=== PATIENT | male | born 1960 | race Caucasian/White ===

== ENCOUNTER → 2019-02-26 | Emergency (ER) | payer OTHER ==
[~2019-02-26] VITALS: Ht 172.7 cm; Wt 90.7 kg
[~2019-02-26] MED LIST: CEPH500T PO; cefTRIAXone FOR IV USE 1,000 MG in WATER (STERILE) FOR INJECTION 10 ML IV ONE
--- NOTE | 2019-02-26 17:16 | Diagnostic Imaging Report ---
INDICATION: No history. TIME OF EXAM: 4:57 p.m. EXAMINATION: Three views of left side toes were obtained. FINDINGS: Metatarsals are intact. Phalanges appear to be intact. Midfoot is unremarkable. No fracture is seen. IMPRESSION: No acute bony abnormality is detected. Dictated by: Dictated on workstation # [id number]
[2019-02-26 17:17] LABS: BASOPHILS % (AUTO) 1 % (0-10); EOSINOPHILS # (AUTO) 0.4 10^3/uL (0.0-0.3); EOSINOPHILS % (AUTO) 6 % (0-10); HEMATOCRIT 36 % (40-54); HEMOGLOBIN 12.1 G/DL (13.3-17.7); LYMPHOCYTES # (AUTO) 1.4 X 10^3 (1.0-4.0); LYMPHOCYTES % (AUTO) 18 % (12-44); MEAN CORPUSCULAR HEMOGLOBIN 30 PG (25-34); MEAN CORPUSCULAR HGB CONC 34 G/DL (32-36); MEAN CORPUSCULAR VOLUME 90 FL (80-99); MEAN PLATELET VOLUME 11.9 FL (7.4-10.4); MONOCYTES # (AUTO) 0.8 X 10^3 (0.0-1.0); MONOCYTES % (AUTO) 10 % (0-12); NEUTROPHILS # (AUTO) 5.2 X 10^3 (1.8-7.8); NEUTROPHILS % (AUTO) 66 % (42-75); PLATELET COUNT 171 10^3/uL (130-400); RED CELL DISTRIBUTION WIDTH 14.5 % (10.0-14.5); WHITE BLOOD COUNT 7.8 10^3/uL (4.3-11.0)
[2019-02-26 17:30] LABS: ALBUMIN 3.3 GM/DL (3.2-4.5); BILIRUBIN,TOTAL 0.4 MG/DL (0.1-1.0); CALCIUM 8.7 MG/DL (8.5-10.1); CREATININE SERUM 3.89 MG/DL (0.60-1.30); POTASSIUM 3.9 MMOL/L (3.6-5.0); TOTAL PROTEIN 6.2 GM/DL (6.4-8.2)
--- NOTE | 2019-02-26 17:49 | ED Lower Extremity ---
General Chief Complaint: Lower Extremity Stated Complaint: LEFT TOE PAIN Nursing Triage Note: pt complaint of swelling and pain left third toe Nursing Sepsis Screen: No Definite Risk Source: patient Exam Limitations: no limitations History of Present Illness Date Seen by Provider: Feb 26, 2019 Time Seen by Provider: 16:30 Initial Comments 58 year old male who presents to the ED with complains of pain and swelling to the left third toe. Patient is a known diabetic with a chronic diabetic ulcer to the michaud aspect but noticed redness and swelling that started this morning to the dorsal surface. Denies fevers. HX of chronic kidney disease. Has appointment with PCP on Saturday of next week for this issue. Today is February 26. Onset: this morning Pain/Injury Location: left 3rd toe Allergies and Home Medications Allergies Uncoded Allergies: iv contrast (Allergy, Unknown, 02/26/19) Home Medications Cephalexin 500 Mg Tablet, 500 MG PO QID Prescribed by: MELIDA WOO on 02/26/19 4970 Patient Home Medication List Home Medication List Reviewed: Yes Review of Systems Constitutional: see HPI; No chills, No fever Musculoskeletal: see HPI, joint pain (left 3rd toe) All Other Systems Reviewed Negative Unless Noted: Yes Past Sgalrpm-Kiymif-Nggrco Hx Past Med/Social Hx: Reviewed Nursing Past Med/Soc Hx Patient Social History Recent Foreign Travel: No Contact w/Someone Who Travel: No Recent Infectious Disease Expo: No Family Medical History Reviewed Nursing Family Hx Physical Exam Vital Signs Vital Signs - First Documented 02/26/19 16:40 Temp 96.5 Pulse 71 Resp 18 B/P (MAP) 154/83 (106) Pulse Ox 100 O2 Delivery Room Air Capillary Refill : Less Than 3 Seconds Height, Weight, BMI Height: 5'8.00" Weight: 200lbs. oz. [id number]; BMI Method:Estimated General Appearance: WD/WN, no apparent distress Cardiovascular: normal peripheral pulses, regular rate, rhythm, no edema, no gallop, no JVD, no murmur Respiratory: chest non-tender, lungs clear, normal breath sounds, no respiratory distress, no accessory muscle use Feet: left foot infection, left foot pain, left foot swelling, left foot other (erythema to left 3rd toe dorsal surface) Neurologic/Tendon: normal sensation, normal motor functions, normal tendon functions, responds to pain, no evidence tendon injury Neurologic/Psychiatric: alert, normal mood/affect, oriented x 3 Skin: normal color, warm/dry Progress/Results/Core Measures Results/Orders Lab Results Laboratory Tests Test 02/26/19 16:40 Range/Units White Blood Count 7.8 4.3-11.0 10^3/uL Red Blood Count 4.03 L 4.35-5.85 10^6/uL Hemoglobin 12.1 L 13.3-17.7 G/DL Hematocrit 36 L 40-54 % Mean Corpuscular Volume 90 80-99 FL Mean Corpuscular Hemoglobin 30 25-34 PG Mean Corpuscular Hemoglobin Concent 34 32-36 G/DL Red Cell Distribution Width 14.5 10.0-14.5 % Platelet Count 171 130-400 10^3/uL Mean Platelet Volume 11.9 H 7.4-10.4 FL Neutrophils (%) (Auto) 66 42-75 % Lymphocytes (%) (Auto) 18 12-44 % Monocytes (%) (Auto) 10 0-12 % Eosinophils (%) (Auto) 6 0-10 % Basophils (%) (Auto) 1 0-10 % Neutrophils # (Auto) 5.2 1.8-7.8 X 10^3 Lymphocytes # (Auto) 1.4 1.0-4.0 X 10^3 Monocytes # (Auto) 0.8 0.0-1.0 X 10^3 Eosinophils # (Auto) 0.4 H 0.0-0.3 10^3/uL Basophils # (Auto) 0.0 0.0-0.1 10^3/uL Sodium Level 138 135-145 MMOL/L Potassium Level 3.9 3.6-5.0 MMOL/L Chloride Level 105 98-107 MMOL/L Carbon Dioxide Level 21 21-32 MMOL/L Anion Gap 12 5-14 MMOL/L Blood Urea Nitrogen 65 H 7-18 MG/DL Creatinine 3.89 H 0.60-1.30 MG/DL Estimat Glomerular Filtration Rate 16 BUN/Creatinine Ratio 17 Glucose Level 103 70-105 MG/DL Lactic Acid Level 0.91 0.50-2.00 MMOL/L Calcium Level 8.7 8.5-10.1 MG/DL Corrected Calcium 9.3 8.5-10.1 MG/DL Total Bilirubin 0.4 0.1-1.0 MG/DL Aspartate Amino Transf (AST/SGOT) 18 5-34 U/L Alanine Aminotransferase (ALT/SGPT) 15 0-55 U/L Alkaline Phosphatase 84 40-136 U/L C-Reactive Protein High Sensitivity 0.28 0.00-0.50 MG/DL Total Protein 6.2 L 6.4-8.2 GM/DL Albumin 3.3 3.2-4.5 GM/DL Micro Results Microbiology 02/26/19 Blood Culture - Preliminary, Resulted No growth 02/26/19 Blood Culture - Preliminary, Resulted No growth My Orders Orders - MELIDA WOO Toe(S) (02/26/19 16:37) Cbc With Automated Diff (02/26/19 16:37) Comprehensive Metabolic Panel (02/26/19 16:37) Blood Culture (02/26/19 16:37) Lactic Acid Analyzer (02/26/19 16:37) Hs C Reactive Protein (02/26/19 16:37) Ed Iv/Invasive Line Start (02/26/19 16:47) Ceftriaxone For Iv Use (Rocephin For I (02/26/19 17:45) Iv Push Cereal Supervisor Ed (02/26/19 ) Vital Signs/I&O 02/26/19 02/26/19 16:40 18:32 Temp 96.5 96.0 Pulse 71 70 Resp 18 18 B/P (MAP) 154/83 (106) 150/72 (98) Pulse Ox 100 100 O2 Delivery Room Air Room Air Blood Pressure Mean: 106 Departure Impression Primary Impression: Diabetic ulcer of toe Disposition: HOME, SELF-CARE Condition: Stable/Unchanged Departure-Patient Inst. Decision time for Depature: 17:47 Patient Instructions: Diabetic Foot Ulcer (DC) Add. Discharge Instructions: Take medications as directed. Keep your appointment as scheduled with your PCP on Saturday. Return back to the emergency room for worsening signs of infection such as increased redness, swelling, drainage, pain. All discharge instructions reviewed with patient and/or family. Voiced understanding. Scripts Cephalexin (Cephalexin) 500 Mg Tablet 500 MG PO QID for 7 Days, #28 TAB 0 Refills Prov: MELIDA WOO 02/26/19 MELIDA WOO Feb 26, 2019 17:49
[2019-02-26 18:32] VITALS: BP 150/72
== END | disposition home or self-care (01) ==
LOC: ER 16:18
DX: E11.621 Type 2 diabetes mellitus with foot ulcer (principal); Z91.041 Radiographic dye allergy status
CPT/HCPCS: 36415; 73660; 80053; 83605; 85025; 86141; 87040; 96374

== ENCOUNTER 2019-07-11 20:17 | Emergency (ER) | payer OTHER ==
[~2019-07-11] VITALS: Ht 182.9 cm; Wt 115.7 kg
[~2019-07-11 20:17] MED LIST changes: -cefTRIAXone FOR IV USE 1,000 MG in WATER (STERILE) FOR INJECTION 10 ML IV ONE
[2019-07-11] MEDS ORDERED: DOXYCYCLINE 100 MG (VIBRAMYCIN) TABLET PO ONE (20:45)
[2019-07-11] MEDS ORDERED: DOXY100T2 PO (20:46)
--- NOTE | 2019-07-11 20:46 | ED Upper Extremity ---
General Chief Complaint: Upper Extremity Stated Complaint: IV SITE IS INFLAMED Nursing Triage Note: PT AMBULATE TO TRIAGE WITH C/O POSSIBLE INFECTION FROM AN IV SITE FROM AN IN-HOSPITAL VISIT AT [facility]. PT STATES THAT SITE IS RED AND SWOLLEN. PT STATES THAT IT STARTED HURTING AFTER RECEIVING IV CONTRAST AT [place]. Nursing Sepsis Screen: No Definite Risk Source: patient Exam Limitations: no limitations History of Present Illness Date Seen by Provider: Jul 11, 2019 Time Seen by Provider: 20:30 Initial Comments This 59-year-old gentleman presents to the emergency room with complaints of pain, swelling, and erythema around a right antecubital fossa IV site. He had been admitted at [facility] in [place] earlier in the week. He was dismissed Saturday, July 08. He noticed discomfort initially after having what sounds like by his description a stress echo on Saturday. Symptoms have gradually worsened since then. He has tried gentle heat with a heating pad without much improvement. He denies systemic symptoms. His admission was for fluid overload. He does not recall any incidents with infiltration of the IV during his hospital stay. Allergies and Home Medications Allergies Uncoded Allergies: iv contrast (Allergy, Unknown, 02/26/19) Home Medications Cephalexin 500 Mg Tablet, 500 MG PO QID Prescribed by: MELIDA WOO on 02/26/191748 Doxycycline Hyclate 100 Mg Tablet, 100 MG PO BID Prescribed by: DONOVAN CENTENO on 07/11/192045 Patient Home Medication List Home Medication List Reviewed: Yes Review of Systems Constitutional: no symptoms reported EENTM: no symptoms reported Respiratory: no symptoms reported Cardiovascular: see HPI Gastrointestinal: no symptoms reported Genitourinary: no symptoms reported Musculoskeletal: no symptoms reported Skin: see HPI Psychiatric/Neurological: No Symptoms Reported Past Abqwwrh-Gmwquf-Dngqef Hx Past Med/Social Hx: Reviewed Nursing Past Med/Soc Hx Patient Social History Recent Foreign Travel: No Contact w/Someone Who Travel: No Recent Infectious Disease Expo: No Physical Abuse: No Sexual Abuse: No Mistreated: No Fear: No Past Medical History Surgeries: Yes Abdominal (gastric sleeve), Adenoidectomy, Cardiac (angiography), Tonsillectomy Respiratory: No Cardiac: Yes (congestive heart failure) High Cholesterol, Hypertension Genitourinary: Yes Renal Failure Gastrointestinal: Yes (gastric sleeve) Musculoskeletal: No Endocrine: Yes Diabetes, Non-Insulin dep HEENT: Yes Cataract Cancer: No Psychosocial: No Integumentary: Yes (history of cellulitis) Physical Exam Vital Signs Vital Signs - First Documented 07/11/19 07/11/19 20:23 20:51 Temp 36.8 Pulse 66 Resp 18 B/P (MAP) 146/78 (100) Pulse Ox 100 O2 Delivery Room Air Capillary Refill : Less Than 3 Seconds Height, Weight, BMI Height: 5'8.00" Weight: 200lbs. oz. [id number]; 34.00 BMI Method:Estimated General Appearance: WD/WN, no apparent distress HEENT: normal ENT inspection Cardiovascular: regular rate, rhythm, no edema, no murmur Respiratory: lungs clear, normal breath sounds, no respiratory distress Shoulder: normal inspection Elbow/Forearm: swelling (erythema, warmth, tenderness, slight swelling, and mild induration surrounding an IV site in the right antecubital fossa extending to the ventral surface of the proximal forearm and the ventral surface of the distal upper arm) Wrist: Yes normal inspection Hand: normal inspection Progress/Results/Core Measures Results/Orders My Orders Orders - DONOVAN PATRICK MD Doxycycline Hyclate Tablet (Vibramycin T (07/11/19 20:45) Medications Given in ED Current Medications Medications Dose Ordered Sig/Sanjay Route Start Time Stop Time Status Last Admin Dose Admin Doxycycline Hyclate 100 mg ONCE ONCE PO 07/11/19 20:45 07/11/19 20:46 DC 07/11/19 20:47 100 MG Vital Signs/I&O 07/11/19 07/11/19 20:23 20:51 Temp 36.8 Pulse 66 69 Resp 18 18 B/P (MAP) 146/78 (100) 131/71 Pulse Ox 100 O2 Delivery Room Air Room Air Blood Pressure Mean: 100 POS Progress Progress Note : Progress Note Findings likely represent superficial thrombophlebitis versus cellulitis. I'm concerned about cellulitis as this has worsened over the past 4 days rather than improved. A dose of doxycycline was administered. See discharge instructions for discussion with patient. Departure Impression Primary Impression: Cellulitis of right arm Disposition: 01 HOME, SELF-CARE Condition: Improved Departure-Patient Inst. Decision time for Depature: 20:43 Referrals: NO,LOCAL PHYSICIAN (PCP/Family) Primary Care Physician Patient Instructions: Cellulitis (Skin Infection), Adult (DC) Add. Discharge Instructions: The redness on your arm is likely cellulitis versus superficial thrombophlebitis (small blood clot in a superficial vein). Complete antibiotics as prescribed to treat potential cellulitis. Elevation to the level of the heart and compresses or heating pad on low setting in 20 minute intervals could help with thrombophlebitis. Return to care if you have worsening condition including spreading of redness after 2 doses of the antibiotic, development of fever over 100, increasing pain, puslike drainage, etc. All discharge instructions reviewed with patient and/or family. Voiced understanding. Scripts Doxycycline Hyclate (Doxycycline Hyclate) 100 Mg Tablet 100 MG PO BID, #14 TAB 0 Refills Prov: DONOVAN PATRICK MD 07/11/19 DONOVAN PATRICK MD Jul 11, 2019 20:46 POS
[2019-07-11 20:51] VITALS: BP 131/71
== END 2019-07-11 20:51 | disposition home or self-care (01) ==
LOC: EDUNIT# 20:17 → ER 20:18
DX: L03.113 Cellulitis of right upper limb (principal); I11.0 Hypertensive heart disease with heart failure; I50.9 Heart failure, unspecified; E78.00 Pure hypercholesterolemia, unspecified; E11.9 Type 2 diabetes mellitus without complications; Z91.041 Radiographic dye allergy status; Z90.89 Acquired absence of other organs
CPT/HCPCS: 99283

== ENCOUNTER 2022-07-07 17:51 | Observation (INO) | payer MEDICARE, OTHER ==
[~2022-07-07] VITALS: Ht 182 cm; Wt 112.1 kg
[~2022-07-07 17:51] MED LIST changes: +DOXY100T2 PO
[2022-07-07 18:29] LABS: BASOPHILS % (AUTO) 0 % (0-10); EOSINOPHILS % (AUTO) 0 % (0-10); HEMATOCRIT 40 % (40-54)
[2022-07-07 18:31] LABS: HEMOGLOBIN 13.1 g/dL (13.3-17.7); LYMPHOCYTES # (AUTO) 0.8 10^3/uL (1.0-4.0); LYMPHOCYTES % (AUTO) 9 % (12-44); MEAN CORPUSCULAR HEMOGLOBIN 30 pg (25-34); MEAN CORPUSCULAR HGB CONC 33 g/dL (32-36); MEAN CORPUSCULAR VOLUME 91 fL (80-99); MEAN PLATELET VOLUME 11.4 fL (9.0-12.2); MONOCYTES % (AUTO) 11 % (0-12); NEUTROPHILS # (AUTO) 7.2 10^3/uL (1.8-7.8); NEUTROPHILS % (AUTO) 79 % (42-75); PLATELET COUNT 121 10^3/uL (130-400)
--- NOTE | 2022-07-07 18:38 | ED General ---
General Chief Complaint: Fever-Adult/Adol Stated Complaint: LOWER RIGHT RIB PAIN/FEVER Nursing Triage Note: ARRIVED VIA AMB TO ROOM 09 WITH COMPLAINTS OF A FEVER, RIGHT LOWER RIB PAIN STARTING TODAY. PT TOOK TYLENOL AT 1500. PT HAD A KIDNEY TRANSPLANT IN OCTOBER. Source of Information: Patient Exam Limitations: No Limitations History of Present Illness Date Seen by Provider: Jul 07, 2022 Time Seen by Provider: 18:16 Initial Comments This 62-year-old gentleman presents to the emergency room with complaints of fever, shortness of breath, right lower pleuritic chest pain. He had vomiting on July 03 but otherwise denies abdominal symptoms. He has history of renal failure and renal transplant in October 2021. His transplant team is at [facility]. He receives nephrology services from Dr. Hernández in [place], [place]. His primary care provider is Dr. Leggett in [place]. He is not febrile at present. He reports temperatures at home up to 102.2. He last had Tylenol at 1500. Pain is beneath the right costal margin anteriorly and is worse with inspiration and coughing. He is not in any distress. Patient reports creatinine on Saturday was 1.7 with a GFR of 44. Allergies and Home Medications Allergies Coded Allergies: Iodinated Contrast Media (Verified Allergy, Unknown, 07/07/22) Uncoded Allergies: iv contrast (Allergy, Unknown, 02/26/19) Patient Home Medication List Home Medication List Reviewed: Yes Carvedilol (Carvedilol) 25 Mg Tablet, (Reported) Entered as Reported by: Kanwal Cassidy on 07/08/2258 Last Action: Last Taken Edited Cephalexin (Cephalexin) 500 Mg Tablet, 500 MG PO QID Prescribed by: MELIDA WOO on 02/26/191748 Doxycycline Hyclate (Doxycycline Hyclate) 100 Mg Tablet, 100 MG PO BID Prescribed by: DONOVAN CENTENO on 07/11/192045 Gabapentin (Gabapentin) 100 Mg Capsule, (Reported) Entered as Reported by: Kanwal Cassidy on 07/08/2258 Last Action: New Order Losartan Potassium (Losartan Potassium) 100 Mg Tablet, (Reported) Entered as Reported by: Kanwal Cassidy on 07/08/2258 Last Action: New Order Metformin HCl (Metformin HCl ER) 500 Mg Tab.er.24h, (Reported) Entered as Reported by: Kanwal Cassidy on 07/08/2258 Last Action: New Order Mycophenolate Sodium (Mycophenolic Acid) 180 Mg Tablet., (Reported) Entered as Reported by: Kanwal Cassidy on 07/08/2258 Last Action: New Order Pantoprazole Sodium (Pantoprazole Sodium) 40 Mg Tablet., (Reported) Entered as Reported by: Kanwal Cassidy on 07/08/2258 Last Action: New Order Pravastatin Sodium (Pravastatin Sodium) 20 Mg Tablet, (Reported) Entered as Reported by: Kanwal Cassidy on 07/08/2258 Last Action: New Order Tacrolimus (Envarsus Xr) 1 Mg Tab.er.24h, (Reported) Entered as Reported by: Kanwal Cassidy on 07/08/2258 Last Action: New Order Tacrolimus (Envarsus Xr) 4 Mg Tab.er.24h, (Reported) Entered as Reported by: Kanwal Cassidy on 07/08/2258 Last Action: New Order Review of Systems Review of Systems Constitutional: see HPI EENTM: no symptoms reported Respiratory: see HPI Cardiovascular: no symptoms reported Gastrointestinal: see HPI Genitourinary: see HPI Musculoskeletal: no symptoms reported Skin: no symptoms reported Psychiatric/Neurological: No Symptoms Reported Hematologic/Lymphatic: No Symptoms Reported Immunological/Allergic: no symptoms reported Past Iagkvbn-Frvfoq-Zagvbf Hx Patient Social History Tobacco Use?: No Use of E-Cig and/or Vaping dev: No Substance use?: No Alcohol Use?: No Immunizations Up To Date 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: TENISHA Seasonal Allergies Seasonal Allergies: Yes Past Medical History Surgeries: Yes Abdominal (Gastric sleeve), Adenoidectomy, Cardiac, Kidney Transplant, Tonsillectomy Respiratory: Yes Sleep Apnea Cardiac: Yes (congestive heart failure) Chronic Edema/Swelling (Lymphedema), High Cholesterol, Hypertension Neurological: Yes Neuropathy Genitourinary: Yes Renal Failure Gastrointestinal: Yes (gastric sleeve) Musculoskeletal: No Endocrine: Yes Diabetes, Non-Insulin dep HEENT: Yes Cataract Loss of Vision: Denies Hearing Impairment: Denies Cancer: No Psychosocial: No Integumentary: Yes (history of cellulitis) Blood Disorders: No Physical Exam-Suspected Sepsis Physical Exam Vital Signs Vital Signs - First Documented 07/07/22 18:02 Temp 37.3 Pulse 103 Resp 16 B/P (MAP) 164/72 (102) Pulse Ox 96 O2 Delivery Room Air Capillary Refill : Less Than 3 Seconds Blood Pressure Mean: 102 Height, Weight, BMI Height: 5'8.00" Weight: 200lbs. oz. [id number]; 32.00 BMI Method:Estimated General Appearance: No Apparent Distress, WD/WN, Other (Winces when he coughs or breathes deeply, otherwise not in distress) HEENT: PERRL/EOMI, Normal ENT Inspection Neck: Normal Inspection; No JVD Respiratory: No Accessory Muscle Use, No Respiratory Distress, Decreased Breath Sounds, Rhonci (Right lower chest) Cardiovascular: Regular Rate, Rhythm, No Edema, No Murmur Gastrointestinal: Non Tender, Soft, Abnormal Bowel Sounds (Decreased); No Distended Extremity: Normal Inspection, Non Tender, No Pedal Edema Neurologic/Psychiatric: Alert, Oriented x3, No Motor/Sensory Deficits, Normal Mood/Affect, front desk worker II-XII Norm as Tested Skin: normal color, warm/dry Focused Exam Lactate Level 07/07/22 18:40: Lactic Acid Level 0.75 Lactic Acid Level Progress/Results/Core Measures Suspected Sepsis SIRS Temperature: Pulse: 103 Respiratory Rate: 16 Laboratory Tests 07/07/22 18:20: White Blood Count 9.0 07/08/22 05:06: Blood Pressure 164 /72 Mean: 102 07/07/22 18:40: Lactic Acid Level 0.75 Laboratory Tests 07/07/22 18:20: Creatinine 1.73H, INR Comment 1.2, Platelet Count 121L, Total Bilirubin 0.7 07/08/22 05:06: Creatinine 1.59H Results/Orders Lab Results Laboratory Tests Test 07/07/22 18:20 07/07/22 18:30 07/07/22 18:40 07/07/22 18:45 Range/Units White Blood Count 9.0 4.3-11.0 10^3/uL Red Blood Count 4.39 4.30-5.52 10^6/uL Hemoglobin 13.1 L 13.3-17.7 g/dL Hematocrit 40 40-54 % Mean Corpuscular Volume 91 80-99 fL Mean Corpuscular Hemoglobin 30 25-34 pg Mean Corpuscular Hemoglobin Concent 33 32-36 g/dL Red Cell Distribution Width 13.5 10.0-14.5 % Platelet Count 121 L 130-400 10^3/uL Mean Platelet Volume 11.4 9.0-12.2 fL Immature Granulocyte % (Auto) 0 % Neutrophils (%) (Auto) 79 H 42-75 % Lymphocytes (%) (Auto) 9 L 12-44 % Monocytes (%) (Auto) 11 0-12 % Eosinophils (%) (Auto) 0 0-10 % Basophils (%) (Auto) 0 0-10 % Neutrophils # (Auto) 7.2 1.8-7.8 10^3/uL Lymphocytes # (Auto) 0.8 L 1.0-4.0 10^3/uL Monocytes # (Auto) 1.0 0.0-1.0 10^3/uL Eosinophils # (Auto) 0.0 0.0-0.3 10^3/uL Basophils # (Auto) 0.0 0.0-0.1 10^3/uL Immature Granulocyte # (Auto) 0.0 0.0-0.1 10^3/uL Percent Immature Platelet Fraction 4.8 0.0-7.6 % Prothrombin Time 15.5 H 12.2-14.7 SEC INR Comment 1.2 0.8-1.4 Activated Partial Thromboplast Time 30 24-35 SEC Sodium Level 135 135-145 MMOL/L Potassium Level 4.3 3.6-5.0 MMOL/L Chloride Level 106 98-107 MMOL/L Carbon Dioxide Level 18 L 21-32 MMOL/L Anion Gap 11 5-14 MMOL/L Blood Urea Nitrogen 25 H 7-18 MG/DL Creatinine 1.73 H 0.60-1.30 MG/DL Estimat Glomerular Filtration Rate 45 BUN/Creatinine Ratio 14 Glucose Level 125 H 70-105 MG/DL Calcium Level 9.1 8.5-10.1 MG/DL Corrected Calcium 9.5 8.5-10.1 MG/DL Total Bilirubin 0.7 0.1-1.0 MG/DL Aspartate Amino Transf (AST/SGOT) 11 5-34 U/L Alanine Aminotransferase (ALT/SGPT) 12 0-55 U/L Alkaline Phosphatase 82 40-136 U/L C-Reactive Protein High Sensitivity 8.16 H 0.00-0.50 MG/DL Total Protein 6.3 L 6.4-8.2 GM/DL Albumin 3.5 3.2-4.5 GM/DL Urine Color YELLOW Urine Clarity CLEAR Urine pH 6.0 5-9 Urine Specific [place] >=1.030 1.016-1.022 Urine Protein 2+ H NEGATIVE Urine Glucose (UA) NEGATIVE NEGATIVE Urine Ketones NEGATIVE NEGATIVE Urine Nitrite NEGATIVE NEGATIVE Urine Bilirubin NEGATIVE NEGATIVE Urine Urobilinogen 0.2 < = 1.0 MG/DL Urine Leukocyte Esterase TRACE H NEGATIVE Urine RBC (Auto) TRACE-I H NEGATIVE Urine RBC NONE /HPF Urine WBC 5-10 H /HPF Urine Squamous Epithelial Cells 0-2 /HPF Urine Crystals NONE /LPF Urine Bacteria FEW H /HPF Urine Casts PRESENT /LPF Urine Hyaline Casts RARE /LPF Urine Mucus NEGATIVE /LPF Urine Culture Indicated CULTURE PENDING Lactic Acid Level 0.75 0.50-2.00 MMOL/L Influenza Type A (RT-PCR) Not Detected Not Detecte Influenza Type B (RT-PCR) Not Detected Not Detecte SARS-CoV-2 RNA (RT-PCR) Not Detected Not Detecte Test 07/08/22 05:06 Range/Units Sodium Level 135 135-145 MMOL/L Potassium Level 4.9 3.6-5.0 MMOL/L Chloride Level 108 H 98-107 MMOL/L Carbon Dioxide Level 16 L 21-32 MMOL/L Anion Gap 11 5-14 MMOL/L Blood Urea Nitrogen 22 H 7-18 MG/DL Creatinine 1.59 H 0.60-1.30 MG/DL Estimat Glomerular Filtration Rate 49 BUN/Creatinine Ratio 14 Glucose Level 112 H 70-105 MG/DL Calcium Level 8.5 8.5-10.1 MG/DL My Orders Orders - DONOVAN PATRICK MD Cbc With Automated Diff (07/07/22 18:16) Comprehensive Metabolic Panel (07/07/22 18:16) Blood Culture (07/07/22 18:16) Sputum Culture (07/07/22 18:16) Urinalysis (07/07/22 18:16) Urine Culture (07/07/22 18:16) Protime With Inr (07/07/22 18:16) Partial Thromboplastin Time (07/07/22 18:16) Chest 1 View, Ap/Pa Only (07/07/22 18:16) Ed Iv/Invasive Line Start (07/07/22 18:16) Vital Signs Adult Sepsis Patie Q15M (07/07/22 18:16) O2 (07/07/22 18:16) Remove Rings In Anticipation O (07/07/22 18:16) Lactic Acid Analyzer (07/07/22 18:16) Hs C Reactive Protein (07/07/22 18:16) Covid 19 Inhouse Test (07/07/22 18:16) Influenza A And B By Pcr (07/07/22 18:16) Ns Iv 1000 Ml (Sodium Chloride 0.9%) (07/07/22 18:45) Ct Chest/Abdomen/Pelvis Wo (07/07/22 19:39) Ceftriaxone 1 Gm Pre-Mix (Rocephin 1 Gm (07/07/22 19:40) Code/Resuscitation (07/07/22 21:07) Doxycycline Injection (Vibramycin Inject (07/07/22 21:15) Ed Admission (Communication) (07/07/22 21:07) Vital Signs/I&O 07/07/22 07/07/22 07/07/22 07/07/22 18:02 21:22 21:30 21:30 Temp 37.3 37.3 37.2 Pulse 103 105 108 Resp 16 16 18 B/P (MAP) 164/72 (102) 161/84 162/86 (111) Pulse Ox 96 92 93 94 O2 Delivery Room Air Room Air Room Air Room Air 07/07/22 07/08/22 23:34 03:55 Temp 37.2 37.3 Pulse 93 96 Resp 16 16 B/P (MAP) 139/70 (93) 155/74 (101) Pulse Ox 93 93 O2 Delivery NIV CPAP NIV CPAP 07/08/22 00:00 Intake Total 1050 ml Balance 1050 ml Capillary Refill : Less Than 3 Seconds Blood Pressure Mean: 102 Progress Note : Time: 20:57 Progress Note Patient was found to have a small amount of WBC and bacteria in his urine. However, this does not explain his syndrome at present. CT of the chest, abdomen and pelvis was ordered to clarify the etiology of his pain and fever. Right lower lobe pneumonia was clearly identified on the CT. He is receiving Rocephin. We will add doxycycline. Case was reviewed with Dr. Max who accepts admission. CODE STATUS was discussed, and patient requests full code. Diagnostic Imaging Diagonstic Imaging: Xray Plain Films/CT/US/NM/MRI: chest Comments Chest x-ray viewed by me and report reviewed. See report below: NAME: MARYANN NIEVES [facility] REC#: [id number] PT STATUS: REG ER : 1960 PHYSICIAN: DONOVAN PATRICK MD ADMIT DATE: 07/07/22/ER Draft Date of Exam:07/07/22 CHEST 1 VIEW, AP/PA ONLY INDICATION: Fever, right lower chest pain. FINDINGS: The heart size upper limits but no overt failure pattern or significant vascular congestion. No focal consolidation. No free air beneath the diaphragms. No acute chest wall abnormality evident. IMPRESSION: No acute appearing abnormality. Dictated on workstation # [id number] Dict: 07/07/221918 Trans: 07/07/221921 [facility] [id number] Interpreted by: ANNIE FUENTES Diagonstic Imaging: CT Plain Films/CT/US/NM/MRI: chest, abdomen, pelvis Comments CT chest, abdomen and pelvis viewed by me and report reviewed. See report below: NAME: MARYANN NIEVES [facility] REC#: [id number] PT STATUS: REG ER : 1960 PHYSICIAN: DONOVAN PATRICK MD ADMIT DATE: 07/07/22/ER Draft Date of Exam:07/07/22 CT CHEST/ABDOMEN/PELVIS WO PROCEDURE: CT chest, abdomen, and pelvis without contrast. TECHNIQUE: Multiple contiguous axial images were obtained through the chest, abdomen, and pelvis without the use of intravenous contrast. Auto Exposure Controls were utilized during the CT exam to meet ALARA standards for radiation dose reduction. INDICATION: Fever, right lower quadrant pain, renal transplant. FINDINGS: CT CHEST: Focal airspace consolidation and bronchograms in the right lower lobe anterolaterally and inferiorly is consistent with pneumonia. The left lung and right upper lobe as well as middle lobe clear. No abscess or empyema. There is a minute right pleural effusion at the posterior sulcus, nonloculated. There is no adenopathy. The aorta is nonaneurysmal. No acute chest wall pathology. CT ABDOMEN PELVIS: Liver, gallbladder, bile ducts, spleen, adrenals and pancreas unremarkable. The kidneys show some cortical thinning and atrophy but no obstruction. There is a right iliac fossa renal transplant with no peritransplant fluid collection or transplant hydronephrosis. No radiopaque urinary calculi. The abdominal aorta is nonaneurysmal. There is no ileus or bowel obstruction. There is no ascites, abscess, hematoma or acute fluid collection. The urinary bladder is fluid-containing and appears unremarkable. IMPRESSION: 1. Right lower lobe pneumonia, chest otherwise unremarkable. 2. Bilateral [place] renal atrophy without their obstruction. Right iliac fossa transplant without adjacent fluid collection. No acute appearing abdominopelvic abnormality. Dictated on workstation # [id number] Dict: 07/07/222022 Trans: 07/07/222047 [facility] [id number] Interpreted by: ANNIE FUENTES Departure Communication (Admissions) Time/Spoke to Admitting Phy: 21:00 Dr. Max Impression Primary Impression: Right lower lobe pneumonia Qualified Codes: J18.9 - Pneumonia, unspecified organism Additional Impressions: History of renal transplant Chronic kidney disease Qualified Codes: N18.9 - Chronic kidney disease, unspecified Disposition: ADMITTED INPATIENT Condition: Stable Admissions Decision to Admit Reason: Admit from ER (General) Decision to Admit/Date: Jul 07, 2022 Time/Decision to Admit Time: 21:00 Departure-Patient Inst. Referrals: KLAUDIA LEGGETT DO (PCP/Family) Primary Care Physician DONOVAN PATRICK MD Jul 07, 2022 18:38
[2022-07-07 18:42] LABS: ALBUMIN 3.5 GM/DL (3.2-4.5); POTASSIUM 4.3 MMOL/L (3.6-5.0)
[2022-07-07 18:43] LABS: CALCIUM 9.1 MG/DL (8.5-10.1); INR 1.2 (0.8-1.4); PROTHROMBIN TIME PATIENT 15.5 SEC (12.2-14.7)
[2022-07-07 18:45] LABS: TOTAL PROTEIN 6.3 GM/DL (6.4-8.2)
[2022-07-07] MEDS ORDERED: NS IV 1000 ML 1,000 ML IV SCH (18:45)
[2022-07-07 18:46] LABS: BILIRUBIN,TOTAL 0.7 MG/DL (0.1-1.0)
[2022-07-07 18:48] LABS: CREATININE SERUM 1.73 MG/DL (0.60-1.30)
[2022-07-07 19:00] LABS: BILIRUBIN,URINE NEGATIVE (NEGATIVE); CLARITY,URINE CLEAR; COLOR,URINE YELLOW; GLUCOSE, URINE (UA) NEGATIVE (NEGATIVE); KETONES,URINE NEGATIVE (NEGATIVE); LEUKOCYTE ESTERASE ,URINE TRACE (NEGATIVE); NITRITE,URINE NEGATIVE (NEGATIVE); PROTEIN,URINE 2+ (NEGATIVE)
[2022-07-07 19:22] LABS: BACTERIA,URINE FEW /HPF; HYALINE CASTS, URINE RARE /LPF; SQUAMOUS EPITHELIAL CELL,UR 0-2 /HPF
--- NOTE | 2022-07-07 19:22 | Diagnostic Imaging Report ---
INDICATION: Fever, right lower chest pain. FINDINGS: The heart size upper limits but no overt failure pattern or significant vascular congestion. No focal consolidation. No free air beneath the diaphragms. No acute chest wall abnormality evident. IMPRESSION: No acute appearing abnormality. Dictated by: Dictated on workstation # [id number]
[2022-07-07] MEDS ORDERED: cefTRIAXone 1 GM PRE-MIX 50 ML IV STA (19:40)
--- NOTE | 2022-07-07 20:48 | Diagnostic Imaging Report ---
PROCEDURE: CT chest, abdomen, and pelvis without contrast. TECHNIQUE: Multiple contiguous axial images were obtained through the chest, abdomen, and pelvis without the use of intravenous contrast. Auto Exposure Controls were utilized during the CT exam to meet ALARA standards for radiation dose reduction. INDICATION: Fever, right lower quadrant pain, renal transplant. FINDINGS: CT CHEST: Focal airspace consolidation and bronchograms in the right lower lobe anterolaterally and inferiorly is consistent with pneumonia. The left lung and right upper lobe as well as middle lobe clear. No abscess or empyema. There is a minute right pleural effusion at the posterior sulcus, nonloculated. There is no adenopathy. The aorta is nonaneurysmal. No acute chest wall pathology. CT ABDOMEN PELVIS: Liver, gallbladder, bile ducts, spleen, adrenals and pancreas unremarkable. The kidneys show some cortical thinning and atrophy but no obstruction. There is a right iliac fossa renal transplant with no peritransplant fluid collection or transplant hydronephrosis. No radiopaque urinary calculi. The abdominal aorta is nonaneurysmal. There is no ileus or bowel obstruction. There is no ascites, abscess, hematoma or acute fluid collection. The urinary bladder is fluid-containing and appears unremarkable. IMPRESSION: 1. Right lower lobe pneumonia, chest otherwise unremarkable. 2. Bilateral [place] renal atrophy without their obstruction. Right iliac fossa transplant without adjacent fluid collection. No acute appearing abdominopelvic abnormality. Dictated by: Dictated on workstation # [id number]
[2022-07-07] MEDS ORDERED: DOXYCYCLINE INJECTION 100 MG in NS (IVPB) 100 ML IV ONE (21:15)
[2022-07-07 21:30] VITALS: BP 162/86
[2022-07-07] MEDS ORDERED: diphenhydrAMINE 50 MG/ML INJ (BENADRYL) IVP PRN (21:30)
[2022-07-07] MEDS ORDERED: NON-FORMULARY MEDICATION 1 EA EA PO SCH ×2 (21:30)
[2022-07-07] MEDS ORDERED: MELATONIN 3 MG TABLET PO PRN (21:30)
[2022-07-07] MEDS ORDERED: BISACODYL 10 MG SUPP (DULCOLAX) PR PRN (21:30)
[2022-07-07] MEDS ORDERED: LACTULOSE SYRUP 10GM/15ML (ENULOSE) 30ML UDC PO PRN (21:30)
[2022-07-07] MEDS ORDERED: CALCIUM CARBONATE 500 MG (TUMS) TAB.CHEW PO PRN (21:30)
[2022-07-07] MEDS ORDERED: ONDANSETRON 4 MG (ZOFRAN) ORAL DISSOLVE TAB PO PRN (21:30)
[2022-07-07] MEDS ORDERED: MILK OF MAGNESIA 400 MG/5 ML 30 ML UDC PO PRN (21:30)
[2022-07-07] MEDS ORDERED: ACETAMINOPHEN 325 MG TABLET PO PRN (21:30)
[2022-07-07] MEDS ORDERED: polyethylene glycoL POWDER 17 GM (MIRALAX) PACK PO PRN (21:30)
[2022-07-07] MEDS ORDERED: ONDANSETRON 4 MG/2 ML (SDV) Z0FRAN IV PRN (21:30)
[2022-07-07] MEDS ORDERED: hydrALAZINE (APESOLINE) 20 MG/ML VIAL IV PRN (21:30)
[2022-07-07] MEDS ORDERED: diphenhydrAMINE 25 MG TAB (BENADRYL) PO PRN (21:30)
[2022-07-07] MEDS ORDERED: ANTACID SUSP 30 ML UDC (MYLANTA) PO PRN (21:30)
[2022-07-07] MEDS: LACTATED RINGERS 1,000 ML IV SCH (22:05)
[2022-07-07 23:34] VITALS: BP 139/70
[2022-07-08] MEDS ORDERED: PRAV20TA3 (00:59)
[2022-07-08] MEDS ORDERED: CARV25TA (00:59)
[2022-07-08] MEDS ORDERED: MYCO180T3 (00:59)
[2022-07-08] MEDS ORDERED: PANT40TA52 (00:59)
[2022-07-08] MEDS ORDERED: GABA-486 (00:59)
[2022-07-08] MEDS ORDERED: TACR4TAB (00:59)
[2022-07-08] MEDS ORDERED: METF-865 (00:59)
[2022-07-08] MEDS ORDERED: TACR1TAB (00:59)
[2022-07-08] MEDS ORDERED: LOSA100T57 (00:59)
[2022-07-08 03:55] VITALS: BP 155/74
[2022-07-08 05:44] LABS: CALCIUM 8.5 MG/DL (8.5-10.1); CREATININE SERUM 1.59 MG/DL (0.60-1.30); POTASSIUM 4.9 MMOL/L (3.6-5.0)
[2022-07-08 06:17] LABS: BASOPHILS % (AUTO) 0 % (0-10); EOSINOPHILS % (AUTO) 0 % (0-10); HEMATOCRIT 31 % (40-54); HEMOGLOBIN 9.8 g/dL (13.3-17.7); LYMPHOCYTES # (AUTO) 0.6 10^3/uL (1.0-4.0); LYMPHOCYTES % (AUTO) 9 % (12-44); MEAN CORPUSCULAR HEMOGLOBIN 30 pg (25-34); MEAN CORPUSCULAR HGB CONC 31 g/dL (32-36); MEAN CORPUSCULAR VOLUME 95 fL (80-99); MEAN PLATELET VOLUME 11.4 fL (9.0-12.2); MONOCYTES # (AUTO) 0.9 10^3/uL (0.0-1.0); MONOCYTES % (AUTO) 12 % (0-12); NEUTROPHILS # (AUTO) 5.6 10^3/uL (1.8-7.8); NEUTROPHILS % (AUTO) 79 % (42-75); WHITE BLOOD COUNT 7.2 10^3/uL (4.3-11.0)
[2022-07-08 06:31] LABS: PLATELET COUNT 82 10^3/uL (130-400)
[2022-07-08 06:32] LABS: SMEAR SCAN COMMENT 0 CLUMPS OBSERVED
[2022-07-08] MEDS ORDERED: DOXYCYCLINE 100 MG (VIBRAMYCIN) TABLET PO SCH (07:00)
[2022-07-08 07:50] VITALS: BP 154/71
[2022-07-08] MEDS: LACTATED RINGERS 1,000 ML IV SCH (08:25)
[2022-07-08] MEDS ORDERED: AUGMENTIN 875 MG TAB (AMOXICILLIN/CLAVULANATE) PO SCH (08:45)
[2022-07-08] MEDS ORDERED: SENNOSIDES 8.6 MG (SENOKOT) TAB PO SCH (09:00)
[2022-07-08] MEDS ORDERED: DOCUSATE SODIUM 100 MG (COLACE) CAP PO SCH (09:00)
[2022-07-08] MEDS ORDERED: ENOXAPARIN 40 MG/0.4 ML (LOVENOX) SYR SC SCH (09:00)
[2022-07-08] MEDS ORDERED: DOXY100T2 PO (11:10)
[2022-07-08] MEDS ORDERED: AMOX1TAB12 PO (11:10)
[2022-07-08 11:17] VITALS: BP 154/71
[2022-07-08] MEDS ORDERED: cefTRIAXone 2,000 MG in NS (IVPB) 50 ML IV SCH (21:00)
== END 2022-07-08 11:09 | disposition home or self-care (01) ==
LOC: EDUNIT# 17:51 → ER 17:54 → 4TH 21:09 → UNDOADMOB 21:09 → 4TH 21:30 → UNDODISOB 07-08 11:09
PROVIDERS: ADMIT Internal Medicine; ATTEND Internal Medicine
DX: J18.9 Pneumonia, unspecified organism (principal); Z94.0 Kidney transplant status; N18.9 Chronic kidney disease, unspecified; Z20.822 Contact with and (suspected) exposure to COVID-19
CPT/HCPCS: 71045; 71250; 74176; 80048; 80053; 81000; 83605; 85025 ×2; 85610; 85730; 86141; 87040; 87077; 87088; 87184; 87636; 96361 ×2; 96365; 96366; 96372; 99284; G0378; 36415

== ENCOUNTER 2023-02-26 14:33 | Emergency (ER) | payer MEDICARE, OTHER ==
[~2023-02-26] VITALS: Ht 182.8 cm; Wt 112.1 kg
[~2023-02-26 14:33] MED LIST changes: +AMOX1TAB12 PO; +CARV25TA; +GABA-486; +LOSA100T58; +METF-865; +MYCO180T3; +PANT40TA52; +PRAV20TA3; +TACR1TAB; +TACR4TAB
--- NOTE | 2023-02-26 14:52 | ED Abdominal Pain ---
General Chief Complaint: Abdominal/GI Problems Stated Complaint: DIARRHEA | UPSET STOMACH | FATIGUE Source of Information: Patient Exam Limitations: No Limitations History of Present Illness Date Seen by Provider: Feb 26, 2023 Time Seen by Provider: 14:47 Initial Comments Patient is a 62-year-old male who presents to the emergency room with a chief complaint of stomach upset/diarrhea over the last 6 days, feeling "wiped out". Patient has a history of kidney transplant about 2 years ago at . He is a diabetic. He states that he has had watery diarrhea at least 7-10 times a day for the last week. He has not necessarily been increasing his water intake. He is compliant with his daily medications. He has not let his transplant team know that he has had diarrhea. He denies fevers or chills. No abdominal pain. No bloody stools that he is aware of. He has tried Imodium without any relief of symptoms. He did get a new puppy approximately 10 days ago. He is unsure exactly when the diarrhea started as he usually does have some loose stools. The puppy was also having diarrhea and had a stool culture done and he believes that the offending agent was "Coccidia". The puppy has been treated. Timing/Duration: 5-6 Days Severity/Quality: Moderate Associated Symptoms: No Nausea/Vomiting; Other (Some malaise) Allergies and Home Medications Allergies Coded Allergies: Iodinated Contrast Media (Verified Allergy, Unknown, 07/07/22) Uncoded Allergies: iv contrast (Allergy, Unknown, 02/26/19) Patient Home Medication List Home Medication List Reviewed: Yes Amoxicillin/Potassium Clav (Amox Tr-K Clv 875-125 mg Tab) 875 Mg-125 Mg Tablet, 1 EACH PO BID Prescribed by: ZHANE HAIDER on 07/08/22 1110 Carvedilol (Carvedilol) 25 Mg Tablet, (Reported) Entered as Reported by: Kanwal Cassidy on 07/08/22 005 Doxycycline Hyclate (Doxycycline Hyclate) 100 Mg Tablet, 100 MG PO BID Prescribed by: ZHANE HAIDER on 07/08/22 111 Gabapentin (Gabapentin) 100 Mg Capsule, (Reported) Entered as Reported by: Kanwal Cassidy on 07/08/22 005 Losartan Potassium (Losartan Potassium) 100 Mg Tablet, (Reported) Entered as Reported by: Kanwal Cassidy on 07/08/2258 Metformin HCl (Metformin HCl ER) 500 Mg Tab.er.24h, (Reported) Entered as Reported by: Kanwal Cassidy on 07/08/2258 Metronidazole (Metronidazole) 500 Mg Tablet, 500 MG PO TID Prescribed by: AMPARO ANTONY on 02/26/23 1707 Mycophenolate Sodium (Mycophenolic Acid) 180 Mg Tablet.dr (Reported) Entered as Reported by: Kanwal Cassidy on 07/08/2258 Pantoprazole Sodium (Pantoprazole Sodium) 40 Mg Tablet.dr (Reported) Entered as Reported by: Kanwal Cassidy on 07/08/2258 Pravastatin Sodium (Pravastatin Sodium) 20 Mg Tablet, (Reported) Entered as Reported by: Kanwal Cassidy on 07/08/2258 Tacrolimus (Envarsus Xr) 1 Mg Tab.er.24h, (Reported) Entered as Reported by: Kanwal Cassidy on 07/08/2258 Tacrolimus (Envarsus Xr) 4 Mg Tab.er.24h, (Reported) Entered as Reported by: Kanwal Cassidy on 07/08/2258 Review of Systems Review of Systems Constitutional: malaise EENTM: No Symptoms Reported Respiratory: No Symptoms Reported Cardiovascular: No Symptoms Reported Gastrointestinal: Diarrhea, Nausea Genitourinary: No Symptoms Reported Musculoskeletal: no symptoms reported Skin: no symptoms reported Psychiatric/Neurological: No Symptoms Reported All Other Systems Reviewed Negative Unless Noted: Yes Past Riiblec-Lragft-Lhsyyg Hx Seasonal Allergies Seasonal Allergies: Yes Past Medical History Surgeries: Yes Abdominal, Adenoidectomy, Cardiac, Kidney Transplant, Tonsillectomy Respiratory: Yes Sleep Apnea Cardiac: Yes (congestive heart failure) Chronic Edema/Swelling, High Cholesterol, Hypertension Neurological: Yes Neuropathy Genitourinary: Yes Renal Failure Gastrointestinal: Yes (gastric sleeve) Musculoskeletal: No Endocrine: Yes Diabetes, Non-Insulin dep HEENT: Yes Cataract Loss of Vision: Denies Hearing Impairment: Denies Cancer: No Psychosocial: No Integumentary: Yes (history of cellulitis) Blood Disorders: No Physical Exam Vital Signs Vital Signs - First Documented 02/26/23 14:46 Temp 37.3 Pulse 81 Resp 14 B/P (MAP) 120/65 (83) Pulse Ox 98 O2 Delivery Room Air Capillary Refill : Height/Weight/BMI Height: 5'8.00" Weight: 200lbs. oz. [id number]; 33.84 BMI Method:Estimated General Appearance: WD/WN, no apparent distress, obese HEENT: PERRL/EOMI Respiratory: lungs clear, normal breath sounds, no respiratory distress, no accessory muscle use Cardiovascular: regular rate, rhythm Gastrointestinal: normal bowel sounds, non tender, soft Extremities: normal range of motion, normal inspection, no pedal edema Neurologic/Psychiatric: alert, normal mood/affect, oriented x 3 Skin: normal color, warm/dry Progress/Results/Core Measures Results/Orders Lab Results Laboratory Tests Test 02/26/23 14:47 Range/Units White Blood Count 5.3 4.3-11.0 10^3/uL Red Blood Count 4.78 4.30-5.52 10^6/uL Hemoglobin 14.4 13.3-17.7 g/dL Hematocrit 45 40-54 % Mean Corpuscular Volume 94 80-99 fL Mean Corpuscular Hemoglobin 30 25-34 pg Mean Corpuscular Hemoglobin Concent 32 32-36 g/dL Red Cell Distribution Width 14.1 10.0-14.5 % Platelet Count 180 130-400 10^3/uL Mean Platelet Volume 10.9 9.0-12.2 fL Immature Granulocyte % (Auto) 1 % Neutrophils (%) (Auto) 73 42-75 % Lymphocytes (%) (Auto) 10 L 12-44 % Monocytes (%) (Auto) 15 H 0-12 % Eosinophils (%) (Auto) 2 0-10 % Basophils (%) (Auto) 1 0-10 % Neutrophils # (Auto) 3.9 1.8-7.8 X 10^3 Lymphocytes # (Auto) 0.5 L 1.0-4.0 X 10^3 Monocytes # (Auto) 0.8 0.0-1.0 X 10^3 Eosinophils # (Auto) 0.1 0.0-0.3 10^3/uL Basophils # (Auto) 0.0 0.0-0.1 10^3/uL Immature Granulocyte # (Auto) 0.0 0.0-0.1 10^3/uL Sodium Level 139 135-145 MMOL/L Potassium Level 4.4 3.6-5.0 MMOL/L Chloride Level 113 H 98-107 MMOL/L Carbon Dioxide Level 16 L 21-32 MMOL/L Anion Gap 10 5-14 MMOL/L Blood Urea Nitrogen 24 H 7-18 MG/DL Creatinine 2.12 H 0.60-1.30 MG/DL Estimat Glomerular Filtration Rate 35 BUN/Creatinine Ratio 11 Glucose Level 143 H 70-105 MG/DL Calcium Level 9.2 8.5-10.1 MG/DL Corrected Calcium 9.7 8.5-10.1 MG/DL Total Bilirubin 0.4 0.1-1.0 MG/DL Aspartate Amino Transf (AST/SGOT) 18 5-34 U/L Alanine Aminotransferase (ALT/SGPT) 23 0-55 U/L Alkaline Phosphatase 94 40-136 U/L Total Protein 6.3 L 6.4-8.2 GM/DL Albumin 3.4 3.2-4.5 GM/DL Micro Results Microbiology 02/26/23 Cryptosporidium/Giardia - Final, Complete 02/26/23 C. difficile GDH Antigen & Toxins - Final, Resulted 02/26/23 Stool Culture - Preliminary, Resulted Culture In Progress Presumptive Usual Carlie My Orders Orders - AMPARO ANTONY MD Ed Iv/Invasive Line Start (02/26/23 14:58) Cbc With Automated Diff (02/26/23 14:58) Comprehensive Metabolic Panel (02/26/23 14:58) Stool Culture (02/26/23 14:58) C Difficile Ag + Toxin A/B. (02/26/23 14:58) Isolation Central Supply Req (02/26/23 14:58) Ns Iv 1000 Ml (Sodium Chloride 0.9%) (02/26/23 15:42) Parasite Scrn Stool Giard Cryp (02/26/23 22:43) Vital Signs/I&O 02/26/23 02/26/23 14:46 17:20 Temp 37.3 Pulse 81 79 Resp 14 20 B/P (MAP) 120/65 (83) 136/71 Pulse Ox 98 98 O2 Delivery Room Air Room Air Progress Progress Note #1: Time: 16:10 Progress Note Seen and examined by me. Evaluation today includes physical exam, CBC, chemistry. Pertinent physical exam findings, well-developed well-nourished male in no acute distress. Heart is regular, lungs are clear. Abdomen is soft without peritoneal findings such as involuntary guarding or rebound tenderness. His skin is pink warm and dry. Brisk capillary refill. Stable vital signs. He is mentating normally. Differential diagnosis based on history and physical exam, bacterial versus protozoan diarrheal illness, C. difficile, dehydration, acute on chronic kidney failure. Dehydration. Labs independently reviewed and evaluated by me, his CBC is normal. His chem istry is pertinent for a CO2 of 16 reflecting moderate dehydration. BUN and creatinine are slightly elevated based on patient's prior labs reviewed on his phone through his portal at . His BUN is 24 his creatinine is 1.12. Blood sugar up a little bit at 143. Patient is hydrated with IV fluids here in the emergency department. Attempted to get a stool specimen from the patient however he was not able to provide enough in order to get parasite panel. We will send him home with materials in order to be able to get that and bring it back to the emergency department. Anticipate talking to the renal transplant team at to get their input on whether or not to start him on metronidazole. Patient is comfortable with this plan of care. Progress Note #2: Time: 17:05 Progress Note I did reach out to transplant team and spoke with Dr. Blue, she was agreeable with starting Flagyl prophylactically until his cultures and parasite panels came back. We will start him on 500 mg 3 times daily for 10 days. I have instructed him to follow-up with tomorrow via the portal. I have given him strict return precautions. All questions are sought and answered. Patient is stable for discharge Departure Impression Primary Impression: Diarrhea Qualified Codes: R19.7 - Diarrhea, unspecified Additional Impression: History of renal transplant Disposition: 01 HOME, SELF-CARE Condition: Stable Departure-Patient Inst. Decision time for Depature: 17:06 Referrals: KLAUDIA JOSEPH DO (PCP/Family) Primary Care Physician Patient Instructions: Diarrhea, Adult ED Add. Discharge Instructions: You need to increase your fluid intake while you are having diarrhea. Start the metronidazole/Flagyl 500 mg pills 1, 3 times a day this evening. Do not use any more Imodium until you have your culture results back (sometimes "blocking" the diarrhea can make the infection worse). We will contact you about your culture results once they have returned. I have also sent you home with an order for outpatient stool studies. Please try and bring that back this evening or first thing tomorrow morning. I spoke with Dr. Blue, on-call for the transplant team at today. She would like you to reach out via the portal in the next 24 hours and let them know how you are doing. Also if you get any sicker, fever, shortness of breath or abdominal pain or blood in your stool please return to the emergency department for reevaluation. Scripts Metronidazole (Metronidazole) 500 Mg Tablet 500 MG PO TID for 10 Days, #30 TAB Prov: AMPARO ANTONY MD 02/26/23 AMPARO ANTONY MD Feb 26, 2023 14:52
[2023-02-26 15:30] LABS: BASOPHILS % (AUTO) 1 % (0-10); EOSINOPHILS # (AUTO) 0.1 10^3/uL (0.0-0.3); EOSINOPHILS % (AUTO) 2 % (0-10); HEMATOCRIT 45 % (40-54); HEMOGLOBIN 14.4 g/dL (13.3-17.7); LYMPHOCYTES # (AUTO) 0.5 X 10^3 (1.0-4.0); LYMPHOCYTES % (AUTO) 10 % (12-44); MEAN CORPUSCULAR HEMOGLOBIN 30 pg (25-34); MEAN CORPUSCULAR HGB CONC 32 g/dL (32-36); MEAN CORPUSCULAR VOLUME 94 fL (80-99); MEAN PLATELET VOLUME 10.9 fL (9.0-12.2); MONOCYTES # (AUTO) 0.8 X 10^3 (0.0-1.0); MONOCYTES % (AUTO) 15 % (0-12); NEUTROPHILS # (AUTO) 3.9 X 10^3 (1.8-7.8); NEUTROPHILS % (AUTO) 73 % (42-75); PLATELET COUNT 180 10^3/uL (130-400); WHITE BLOOD COUNT 5.3 10^3/uL (4.3-11.0)
[2023-02-26 15:33] LABS: ALBUMIN 3.4 GM/DL (3.2-4.5); POTASSIUM 4.4 MMOL/L (3.6-5.0)
[2023-02-26 15:35] LABS: CALCIUM 9.2 MG/DL (8.5-10.1)
[2023-02-26 15:36] LABS: TOTAL PROTEIN 6.3 GM/DL (6.4-8.2)
[2023-02-26 15:38] LABS: BILIRUBIN,TOTAL 0.4 MG/DL (0.1-1.0)
[2023-02-26 15:39] LABS: CREATININE SERUM 2.12 MG/DL (0.60-1.30)
[2023-02-26] MEDS ORDERED: NS IV 1000 ML 1,000 ML IV STA (15:42)
[2023-02-26] MEDS ORDERED: METR-145 PO (17:07)
[2023-02-26 17:20] VITALS: BP 136/71
== END 2023-02-26 17:21 | disposition home or self-care (01) ==
LOC: EDUNIT# 14:33 → ER 14:36
DX: R19.7 Diarrhea, unspecified (principal); Z94.0 Kidney transplant status
CPT/HCPCS: 36415; 80053; 85025; 87015; 87045; 87046; 87324; 87328; 87329; 87449; 87899